=== PATIENT | male | born 1985 | race Caucasian/White ===

== ENCOUNTER 2019-12-28 08:49 | Observation (INO) ==
[~2019-12-28 08:49] MED LIST: Buffered Lidocaine 1% SYRIN 1 ml INTRADERM ONE; Lactated Ringers 1000 ml BAG 1,000 ML IV SCH; Lidocaine 2% PF 5 ML VIAL ONE; Midazolam 2 mg/2 ml VIAL 1 mg/ml 2 ml VIAL (2 mg) ONE; Propofol 10 MG/ML 20 ML BTL ONE; fentaNYL 250 mcg/5 ml 50 MCG/ML 5 ml VIAL (250 MCG) ONE
[2019-12-28] MEDS ORDERED: Buffered Lidocaine 1% SYRIN 1 ml INTRADERM ONE (08:56)
[2019-12-28] MEDS ORDERED: ceFAZolin 2 GM PREMIX 2 GM/50 ML BAG ONE (08:56)
[2019-12-28] MEDS ORDERED: Bacitracin INJECTION 50,000 UNITS ONE (09:39)
[2019-12-28] MEDS ORDERED: Rocuronium 50 mg VIAL 10 mg/ml 5 ml VIAL (50 mg) ONE (09:44)
[2019-12-28] MEDS ORDERED: Succinylcholine 200 mg VIAL 20 mg/ml 10 ml VIAL (200 mg) ONE (09:44)
[2019-12-28] MEDS ORDERED: Ondansetron 4 mg VIAL 2 MG/ML 2 ml VIAL ONE (10:15)
[2019-12-28] MEDS ORDERED: Dexamethasone IV 4 MG/ML VIAL 1 ml VIAL ONE (10:15)
[2019-12-28] MEDS ORDERED: Metoclopramide 5 MG/ML VIAL (10 mg) ONE (10:15)
[2019-12-28] MEDS ORDERED: HYDROmorphone 1 MG/1 ML SYRINGE ONE (10:20)
[2019-12-28] MEDS ORDERED: HYDROcodone/ACETAMIN 5/325 mg TAB PO PRN (11:36)
[2019-12-28] MEDS ORDERED: Ondansetron 4 mg VIAL 2 MG/ML 2 ml VIAL IV PRN ×2 (11:36→12:01)
[2019-12-28] MEDS ORDERED: Magnesium Hydroxide LIQ 30 ML UDC PO PRN (11:36)
[2019-12-28] MEDS ORDERED: Naloxone 0.4 mg VIAL 0.4 mg/ml 1 ml VIAL IV PRN (12:01)
[2019-12-28] MEDS ORDERED: fentaNYL 100 mcg/2 ml 50 MCG/ML VIAL IV PRN (12:01)
[2019-12-28] MEDS: HYDROcodone/ACETAMIN 5/325 mg TAB PO PRN ×2 (14:13→19:23)
[2019-12-29] MEDS: HYDROcodone/ACETAMIN 5/325 mg TAB PO PRN ×3 (02:29→12:33)
[2019-12-29 07:49] VITALS: BP 128/70
== END 2019-12-29 12:40 | disposition home or self-care (01) ==
LOC: SSU 08:49 → OR 08:49
PROVIDERS: ADMIT Neurological Surgery; ATTEND Internal Medicine